=== PATIENT | male | born 1935 | race African-American/Black ===

== ENCOUNTER 2018-10-26 10:59 | Inpatient (IN) | payer OTHER | END 2018-10-30 16:45 | disposition home health service (06) | LOC: TELE-WESTW 10-28 12:36 → ER 10:59 → TELE 15:10 → TELE-WESTW 19:12 | DX: A41.9 Sepsis, unspecified organism (principal); N17.0 Acute kidney failure with tubular necrosis; J96.00 Acute respiratory failure, unspecified whether with hypoxia or hypercapnia; J69.0 Pneumonitis due to inhalation of food and vomit; I21.A1 Myocardial infarction type 2; J44.0 Chronic obstructive pulmonary disease with (acute) lower respiratory infection; E78.5 Hyperlipidemia, unspecified; R74.8 Abnormal levels of other serum enzymes; N40.0 Benign prostatic hyperplasia without lower urinary tract symptoms; R00.0 Tachycardia, unspecified; I12.9 Hypertensive chronic kidney disease with stage 1 through stage 4 chronic kidney disease, or unspecified chronic kidney disease; N18.9 Chronic kidney disease, unspecified ==